=== PATIENT | female | born 1995 | race Caucasian/White ===

== ENCOUNTER → 2016-08-10 | Outpatient (CLI) | payer MEDICAID | LOC: BHSO 14:24 | DX: F41.1 Generalized anxiety disorder (principal) ==

== ENCOUNTER → 2016-08-17 | Outpatient (CLI) | payer MEDICAID | LOC: BHSO 14:36 | DX: F41.1 Generalized anxiety disorder (principal) ==

== ENCOUNTER → 2016-08-24 | Outpatient (CLI) | payer MEDICAID | LOC: BHSO 13:59 | DX: F41.1 Generalized anxiety disorder (principal) ==

== ENCOUNTER → 2016-08-31 | Outpatient (CLI) | payer MEDICAID | LOC: BHSO 14:15 | DX: F41.1 Generalized anxiety disorder (principal) ==

== ENCOUNTER → 2016-09-21 | Outpatient (CLI) | payer MEDICAID | LOC: BHSO 13:55 | DX: F41.1 Generalized anxiety disorder (principal) ==

== ENCOUNTER → 2016-09-28 | Outpatient (CLI) | payer MEDICAID | LOC: BHSO 13:56 | DX: F41.1 Generalized anxiety disorder (principal) ==

== ENCOUNTER → 2016-10-05 | Outpatient (CLI) | payer MEDICAID | LOC: BHSO 13:57 | DX: F41.1 Generalized anxiety disorder (principal) ==

== ENCOUNTER → 2016-10-13 | Outpatient (CLI) | payer MEDICAID | LOC: BHSO 14:05 | DX: F41.1 Generalized anxiety disorder (principal) ==

== ENCOUNTER → 2016-10-26 | Outpatient (CLI) | payer MEDICAID | LOC: BHSO 13:31 | DX: F41.1 Generalized anxiety disorder (principal) ==

== ENCOUNTER → 2016-11-02 | Outpatient (CLI) | payer MEDICAID | LOC: BHSO 14:04 | DX: F41.1 Generalized anxiety disorder (principal) ==

== ENCOUNTER → 2016-11-09 | Outpatient (CLI) | payer MEDICAID | LOC: BHSO 13:59 | DX: F41.1 Generalized anxiety disorder (principal) ==

== ENCOUNTER → 2016-11-22 | Outpatient (CLI) | payer MEDICAID | LOC: BHSO 12:22 | DX: F90.2 Attention-deficit hyperactivity disorder, combined type (principal) ==

== ENCOUNTER → 2016-12-14 | Outpatient (CLI) | payer MEDICAID | LOC: BHSO 13:37 | DX: F41.1 Generalized anxiety disorder (principal) ==

== ENCOUNTER → 2016-12-28 | Outpatient (CLI) | payer MEDICAID | LOC: BHSO 13:31 | DX: F41.1 Generalized anxiety disorder (principal) ==

== ENCOUNTER → 2017-01-04 | Outpatient (CLI) | payer MEDICAID | LOC: BHSO 13:34 | DX: F41.1 Generalized anxiety disorder (principal) ==

== ENCOUNTER → 2017-01-11 | Outpatient (CLI) | payer MEDICAID | LOC: BHSO 13:57 | DX: F41.1 Generalized anxiety disorder (principal) ==

== ENCOUNTER → 2017-01-25 | Outpatient (CLI) | payer MEDICAID | LOC: BHSO 14:03 | DX: F41.1 Generalized anxiety disorder (principal) ==

== ENCOUNTER → 2017-02-01 | Outpatient (CLI) | payer MEDICAID | LOC: BHSO 14:19 | DX: F41.1 Generalized anxiety disorder (principal) ==

== ENCOUNTER → 2017-02-16 | Outpatient (CLI) | payer MEDICAID | LOC: BHSO 13:34 | DX: F41.1 Generalized anxiety disorder (principal) ==

== ENCOUNTER → 2017-02-22 | Outpatient (CLI) | payer MEDICAID | LOC: BHSO 14:14 | DX: F41.1 Generalized anxiety disorder (principal) ==

== ENCOUNTER → 2017-03-01 | Outpatient (CLI) | payer MEDICAID | LOC: BHSO 14:37 | DX: F41.1 Generalized anxiety disorder (principal) ==

== ENCOUNTER → 2017-03-15 | Outpatient (CLI) | payer MEDICAID | LOC: BHSO 14:10 | DX: F41.1 Generalized anxiety disorder (principal) ==

== ENCOUNTER → 2017-03-29 | Outpatient (CLI) | payer MEDICAID | LOC: BHSO 14:17 | DX: F41.1 Generalized anxiety disorder (principal) ==

== ENCOUNTER → 2017-04-05 | Outpatient (CLI) | payer MEDICAID | LOC: BHSO 14:13 | DX: F41.1 Generalized anxiety disorder (principal) ==

== ENCOUNTER → 2017-04-12 | Outpatient (CLI) | payer MEDICAID | LOC: BHSO 14:16 | DX: F41.1 Generalized anxiety disorder (principal) ==

== ENCOUNTER → 2017-04-19 | Outpatient (CLI) | payer MEDICAID | LOC: BHSO 14:13 | DX: F41.1 Generalized anxiety disorder (principal) ==

== ENCOUNTER → 2017-04-26 | Outpatient (CLI) | payer MEDICAID | LOC: BHSO 14:14 | DX: F41.1 Generalized anxiety disorder (principal) ==

== ENCOUNTER → 2017-05-03 | Outpatient (CLI) | payer MEDICAID | LOC: BHSO 14:10 | DX: F41.1 Generalized anxiety disorder (principal) ==

== ENCOUNTER → 2017-05-10 | Outpatient (CLI) | payer MEDICAID | LOC: BHSO 14:11 | DX: F41.1 Generalized anxiety disorder (principal) ==

== ENCOUNTER → 2017-05-17 | Outpatient (CLI) | payer MEDICAID | LOC: BHSO 13:46 | DX: F41.1 Generalized anxiety disorder (principal) ==

== ENCOUNTER → 2017-05-24 | Outpatient (CLI) | payer MEDICAID | LOC: BHSO 13:45 | DX: F41.1 Generalized anxiety disorder (principal) ==

== ENCOUNTER → 2017-05-31 | Outpatient (CLI) | payer MEDICAID | LOC: BHSO 13:49 | DX: F41.1 Generalized anxiety disorder (principal) ==

== ENCOUNTER → 2017-06-14 | Outpatient (CLI) | payer MEDICAID | LOC: BHSO 13:47 | DX: F41.1 Generalized anxiety disorder (principal) ==

== ENCOUNTER → 2017-06-28 | Outpatient (CLI) | payer MEDICAID | LOC: BHSO 14:12 | DX: F41.1 Generalized anxiety disorder (principal) ==

== ENCOUNTER → 2017-07-05 | Outpatient (CLI) | payer MEDICAID | LOC: BHSO 14:14 | DX: F41.1 Generalized anxiety disorder (principal) ==

== ENCOUNTER → 2017-07-12 | Outpatient (CLI) | payer MEDICAID | LOC: BHSO 14:11 | DX: F41.1 Generalized anxiety disorder (principal) ==

== ENCOUNTER → 2017-07-19 | Outpatient (CLI) | payer MEDICAID | LOC: BHSO 14:12 | DX: F41.1 Generalized anxiety disorder (principal) ==

== ENCOUNTER → 2017-07-26 | Outpatient (CLI) | payer MEDICAID | LOC: BHSO 14:12 | DX: F41.1 Generalized anxiety disorder (principal) ==

== ENCOUNTER → 2017-08-16 | Outpatient (CLI) | payer MEDICAID | LOC: BHSO 14:17 | DX: F41.1 Generalized anxiety disorder (principal) ==

== ENCOUNTER → 2017-08-23 | Outpatient (CLI) | payer MEDICAID | LOC: BHSO 14:12 | DX: F41.1 Generalized anxiety disorder (principal) ==

== ENCOUNTER → 2017-09-06 | Outpatient (CLI) | payer MEDICAID | LOC: BHSO 14:11 | DX: F41.1 Generalized anxiety disorder (principal) ==

== ENCOUNTER → 2017-09-13 | Outpatient (CLI) | payer MEDICAID | LOC: BHSO 14:13 | DX: F41.1 Generalized anxiety disorder (principal) ==